=== PATIENT | female | born 1965 | race Caucasian/White ===

== ENCOUNTER 2016-04-17 11:58 | Emergency (ER) | payer OTHER ==
[2016-04-17 12:22] VITALS: BP 134/89
[2016-04-17] MEDS ORDERED: methylPREDNISolone 125 MG* 2 ML VIAL IM ONE (13:40)
[2016-04-17] MEDS ORDERED: Amoxicillin/Clavulanate TAB* 875 MG PO ONE (13:41)
[2016-04-17] MEDS ORDERED: cefTRIAXone VIAL(*) 1,000 MG VIAL IM ONE (13:41)
[2016-04-17] MEDS ORDERED: Lidocaine 1% MPF* 2 ML VIAL ONE (13:53)
--- NOTE | 2016-04-17 14:33 | UC ---
Guerrero Holloway Anna, scribed for Natalie De Oliveira MD on 04/17/16 at 1250 . General HPI - HPI Summary HPI Summary: Patient is a 50 y/o female coming to [facility] [place] presenting with a sore throat that began three days ago. Mild cough, runny nose, some tummy upset. No rash. Hurts to swallow, and feels congested "hard time breathing" when lies flat. Not sob now. Denies MOONEY, diarrhea. Her history is significant for degenerative disc disease, asthma, and COPD. - History of Current Complaint Chief Complaint: UCRespiratory Stated Complaint: BREATHING/THROAT ISSUES Hx Obtained From: Patient - Allergy/Home Medications Allergies/Adverse Reactions: Allergies Allergy/AdvReac Type Severity Reaction Status Date / Time Aspirin Allergy Severe anaphylaxis Verified 04/17/16 12:23 Sulfa Antibiotics Allergy Severe anaphylaxis Verified 10/15/15 19:01 Bees Allergy Anaphylatic Uncoded 04/17/16 12:23 Shock Environmental Allergies Allergy Congestion Uncoded 04/17/16 12:23 Home Medications: Home Medications Ibuprofen TAB* [Motrin TAB* 600 MG] 1 tab PO Q8HR PRN 04/17/16 [History Confirmed 04/17/16] Pantoprazole TAB (NF) [Protonix TAB (NF)] 1 tab PO DAILY 04/17/16 [History Confirmed 04/17/16] clonazePAM TAB(*) [Klonopin TAB(*)] 1 tab PO DAILY 04/17/16 [History Confirmed 04/17/16] oxyCODONE/Acetamin 10/325(NF) [Percocet 10/325 (NF)] 1 tab PO TID 04/17/16 [ History Confirmed 04/17/16] PMH/Surg Hx/FS Hx/Imm Hx Previously Healthy: No - see hpi Endocrine History Of: Denies: Diabetes, Thyroid Disease Cardiovascular History Of: Reports: Hypertension Denies: Cardiac Disorders, Pacemaker/ICD Respiratory History Of: Reports: COPD, Asthma GI/ History Of: Denies: Ulcer, Renal Disease Psychological History Of: Reports: Anxiety, Depression Cancer History Of: Denies: Breast Cancer - Surgical History Surgical History: Yes Surgery Procedure, Year, and Place: HYSTERECTOMY, TUBAL LIGATION, CARPAL TUNNEL - BILATERAL WRISTS - Family History Known Family History: Positive: Diabetes, Other - Hx Breast CA in aunt - Social History Alcohol Use: None Substance Use Type: None Substance Use Comment - Amount & Last Used: past cocaine use Smoking Status (MU): Current Every Day Smoker Type: Cigarettes Length of Time of Smoking/Using Tobacco: < 1/2 ppd Have You Smoked in the Last Year: Yes Household Exposure Type: Cigarettes - Immunization History Most Recent Influenza Vaccination: 2011 Most Recent Tetanus Shot: PT UNSURE Review of Systems Constitutional: Fever Skin: Negative Eyes: Negative ENT: Sore Throat, Nasal Discharge Respiratory: Cough Cardiovascular: Negative Gastrointestinal: Negative Genitourinary: Negative Motor: Negative Neurovascular: Negative Musculoskeletal: Negative Neurological: Negative Psychological: Negative All Other Systems Reviewed And Are Negative: Yes Physical Exam Triage Information Reviewed: Yes Appearance: Well-Nourished - sitting up. conversing in full sentances. Vital Signs: Initial Vital Signs Temp 95 F 04/17/16 12:11 Pulse 115 04/17/16 12:11 Resp 20 04/17/16 12:11 BP 134/89 04/17/16 12:11 Pulse Ox 99 04/17/16 12:11 Vital Signs Reviewed: Yes Eye Exam: Normal ENT: Positive: Nasal congestion, Tonsillar swelling, Tonsillar exudate, Other: - no stridor. Tongue not elevated. + adenopathy No meningismus. Neck exam: Normal Neck: Positive: Supple, Nontender Respiratory Exam: Normal Respiratory: Positive: Chest non-tender, Lungs clear, Normal breath sounds, No respiratory distress, No accessory muscle use Cardiovascular Exam: Normal Cardiovascular: Positive: RRR, No Murmur, Pulses Normal, Brisk Capillary Refill Abdominal Exam: Normal Abdomen Description: Positive: Nontender, No Organomegaly, Soft Bowel Sounds: Positive: Present Musculoskeletal Exam: Normal Musculoskeletal: Positive: Strength Intact Neurological Exam: Normal - nonfocal, grossly intact Psychological Exam: Normal - conversing easily and appropriately Skin Exam: Normal - No visible or reported rash Course/Dx - Course Course Of Treatment: No new problems in CCC. Considered below differential Dx s. Advised to brush her teeth and rinse her mouth our frequently. Advised to change her toothbrush tomorrow and again in four days. Ms. Bell reports that she is not able to go to the pharmacy until tomorrow am. As such, Rocephin IM here (she reports that she has had this shot in the past), po augmentin x 1, and solumedrol 125mgIM. Advised to go to the ED for worse or new problems. Questions answered to the best of my ability. - Differential Dx - Multi-Symptom Provider Diagnoses: Strep tonsillitis, acute Discharge - Discharge Plan Condition: Stable Disposition: HOME Prescriptions: Amoxicillin/Clavulanate TAB* [Augmentin TAB 875*] 875 mg PO BID #20 tab Fluconazole [Diflucan 150 MG (NF)] 150 mg PO DAILY #2 tab Patient Education Materials: Strep Throat (ED), Tonsillitis (ED) Referrals: Rudy Smith MD [Primary Care Provider] - Additional Instructions: Stomach medicine should not be taken within two hours of antibiotic. Change your toothbrush tomorrow, and again in four days. Please follow up with your primary care provider, Dr. Smith, per routine. Please seek medical attention for worsening problems in the meantime. The documentation as recorded by the Guerrero rosales Anna accurately reflects the service I personally performed and the decisions made by me, Natalie De Oliveira MD.
== END 2016-04-17 14:32 | disposition home or self-care (01) ==
LOC: UCEAST 11:58
DX: J02.0 Streptococcal pharyngitis (principal); I10 Essential (primary) hypertension; J44.9 Chronic obstructive pulmonary disease, unspecified; J45.909 Unspecified asthma, uncomplicated; F17.210 Nicotine dependence, cigarettes, uncomplicated; Z88.2 Allergy status to sulfonamides; F41.9 Anxiety disorder, unspecified; F32.9 Major depressive disorder, single episode, unspecified
CPT/HCPCS: 87651; 96372; 99212; A9270-GY; G0463; J0696; J2930

== ENCOUNTER 2016-09-07 12:34 | Emergency (ER) | payer OTHER ==
[2016-09-07 12:51] VITALS: BP 104/69
--- NOTE | 2016-09-07 20:14 | ED ---
Archana Holloway Edward, scribed for Polo Paz MD on 09/07/16 at 1302 . Skin Complaint - HPI Summary HPI Summary: 50 y/o female c/o red rashes all over her body that appeared 4 days ago. Rashes on face, all over bilateral upper and lower extremities and back. Spots are not painful but pruritic. None on stomach. The spots are worse in the morning. Denies swelling of lips and tongue. Associated sx: SOB earlier and sharp pain in her lower back rated @ 8/10 at triage. PMHx asthma. Patient states she moved into her new home last week and recently bought a new mattress as well. - History of Current Complaint Chief Complaint: EDRashSkinAbscess Time Seen by Provider: 09/07/16 12:53 Stated Complaint: HIVES/DIFFICULTY BREATHING Hx Obtained From: Patient Onset/Duration: Started Days Ago - 3 days ago Current Severity: Severe Pain Intensity: 8 Pain Scale Used: 0-10 Numeric Skin Location: Diffuse - Face, all extremities, back Character: Pruritus, Redness, Raised Associated Signs & Symptoms: Rash - Diffuse over body, pruritic but not painful - Allergy/Home Medications Allergies/Adverse Reactions: Allergies Allergy/AdvReac Type Severity Reaction Status Date / Time Aspirin Allergy Severe anaphylaxis Verified 04/17/16 12:23 Sulfa Antibiotics Allergy Severe anaphylaxis Verified 10/15/15 19:01 Bees Allergy Anaphylatic Uncoded 04/17/16 12:23 Shock Environmental Allergies Allergy Congestion Uncoded 04/17/16 12:23 PMH/Surg Hx/FS Hx/Imm Hx Previously Healthy: No Endocrine/Hematology History: Denies: Hx Diabetes, Hx Thyroid Disease Cardiovascular History: Reports: Hx Hypertension Denies: Hx Pacemaker/ICD Respiratory History: Reports: Hx Asthma, Hx Chronic Obstructive Pulmonary Disease (COPD) GI History: Reports: Hx Gastroesophageal Reflux Disease Denies: Hx Ulcer History: Denies: Hx Renal Disease Musculoskeletal History: Reports: Hx Back Problems - CHRONIC BACK PAIN, Other Musculoskeletal History - RIGHT CARPAL TUNNEL SX Sensory History: Denies: Hx Hearing Aid Psychiatric History: Reports: Hx Anxiety, Hx Depression, Hx Panic Disorder, Hx Post Traumatic Stress Disorder - Surgical History Surgery Procedure, Year, and Place: HYSTERECTOMY, TUBAL LIGATION, CARPAL TUNNEL - BILATERAL WRISTS Infectious Disease History: Yes Infectious Disease History: Denies: Hx Hepatitis, Hx Human Immunodeficiency Virus (HIV), History Other Infectious Disease, Traveled Outside the [place] in Last 30 Days - Family History Known Family History: Positive: Diabetes, Other - Hx Breast CA in aunt - Social History Occupation: Disabled Lives: Alone Alcohol Use: None Hx Substance Use: Yes Substance Use Type: Reports: Cocaine Substance Use Comment - Amount & Last Used: past cocaine use Hx Tobacco Use: Yes Smoking Status (MU): Current Every Day Smoker Type: Cigarettes Length of Time of Smoking/Using Tobacco: < 1/2 ppd Have You Smoked in the Last Year: Yes Review of Systems Constitutional: Negative Eyes: Negative ENT: Negative Cardiovascular: Negative Positive: Shortness Of Breath Gastrointestinal: Negative Genitourinary: Negative Positive: Myalgia - Low back barry Positive: Rash - Diffuse, pruritic not painful Neurological: Negative Psychological: Normal All Other Systems Reviewed And Are Negative: Yes Physical Exam - Summary Physical Exam Summary: VITAL SIGNS:~Reviewed. GENERAL:~ Patient is a well-developed and nourished female who is lying comfortable in the stretcher.~ Patient is not in any acute respiratory distress. HEAD AND FACE:~No signs of trauma.~ No ecchymosis, hematomas or skull depressions. No sinus tenderness. EYES:~PERRLA, EOMI x 2, No injected conjunctiva, no nystagmus. EARS:~Hearing grossly intact. Ear canals and tympanic membranes are within normal limits. MOUTH:~Oropharynx within normal limits. NECK:~Supple, trachea is midline, no adenopathy, no JVD, no carotid bruit, no c- spine tenderness, neck with full ROM. CHEST:~Symmetric, no tenderness at palpation LUNGS:~Clear to auscultation bilaterally. No wheezing or crackles. CVS:~Regular rate and rhythm, S1 and S2 present, no murmurs or gallops appreciated. ABDOMEN:~Soft, non-tender. No signs of distention. No rebound no guarding, and no masses palpated. Bowel sounds are normal. EXTREMITIES:~FROM in all major joints, no edema, no cyanosis or clubbing. NEURO:~Alert and oriented x 3. No acute neurological deficits. Speech is normal and follows commands. SKIN:~Dry and warm. Diffuse insect bites in upper extremities, lower extremities , back, face, and neck - positive erythema and signs of scratching. Triage Information Reviewed: Yes Vital Signs On Initial Exam: Initial Vitals Temp Pulse Resp BP Pulse Ox 97.9 F 84 20 104/69 95 09/07/16 12:46 09/07/16 12:46 09/07/16 12:46 09/07/16 12:46 09/07/16 12:46 Vital Signs Reviewed: Yes Diagnostics - Vital Signs Vital Signs Temp Pulse Resp BP Pulse Ox 09/07/16 12:46 97.9 F 84 20 104/69 95 - Laboratory Lab Statement: Any lab studies that have been ordered have been reviewed, and results considered in the medical decision making process. Course/Dx - Course Assessment/Plan: 50 y/o female c/o red rashes all over her body that appeared 4 days ago. Rashes on face, all over bilateral upper and lower extremities and back. Spots are not painful but pruritic. None on stomach. The spots are worse in the morning. Denies swelling of lips and tongue. Associated sx: SOB earlier and sharp pain in her lower back rated @ 8/10 at triage. PMHx asthma. Patient states she moved into her new home last week and recently bought a new mattress as well. Pt comes with a rash on her upper extermities, chest, back, neck, face and lower extremities. She developed a rash after sleeping on a new couch given to her last Saturday. The pt c/o of itching all over body. It seems the patient has scabies, therefore the patient was given Benadryl and Elimite as well as instructions for getting rid of bed bugs. The patient understand and agrees. The patient is hemodynamically stable and A&Ox3. - Diagnoses Provider Diagnoses: Scabies Discharge - Discharge Plan Condition: Stable Disposition: HOME Prescriptions: Permethrin [Elimite] 5 % TOPICAL ONCE #1 tube diPHENhydraMINE PO* [Benadryl PO 25 MG TAB*] 25 mg PO TID PRN #30 tab PRN Reason: Itching Patient Education Materials: Scabies (ED) Referrals: Rudy Smith MD [Primary Care Provider] - 3 Days (Please f/u in 2-3 days) The documentation as recorded by the Archana rosales Edward accurately reflects the service I personally performed and the decisions made by , Polo Paz MD.
== END 2016-09-07 14:15 | disposition home or self-care (01) ==
LOC: ED 12:34
DX: B86 Scabies (principal); J44.9 Chronic obstructive pulmonary disease, unspecified; I10 Essential (primary) hypertension; K21.9 Gastro-esophageal reflux disease without esophagitis; Z88.6 Allergy status to analgesic agent; Z88.2 Allergy status to sulfonamides; F41.9 Anxiety disorder, unspecified; F32.9 Major depressive disorder, single episode, unspecified
CPT/HCPCS: 99282

== ENCOUNTER 2016-09-08 23:41 | Emergency (ER) | payer OTHER ==
[2016-09-09] MEDS ORDERED: methylPREDNISolone 125 MG* 2 ML VIAL IV ONE (00:38)
[2016-09-09] MEDS ORDERED: NS 0.9% 1000 ML* 1,000 ML IV ONE (00:38)
[2016-09-09] MEDS ORDERED: diPHENhydraMINE IV* 50 MG/ML 1 ml VIAL (BENADRYL) IV ONE (00:38)
[2016-09-09 00:46] LABS: Hematocrit 44 % (35-47); Hemoglobin 14.8 g/dl (12.0-16.0); Mean Corpuscular HGB Conc 33 g/dl (31-36); Mean Corpuscular Hemoglobin 29 pg (27-31); Mean Corpuscular Volume 88 fL (80-97); Mean Platelet Volume 8 um3 (7.4-10.4); Red Blood Count 5.04 10^6/ul (4.0-5.4); Red Cell Distribution Width 14 % (10.5-15); White Blood Count 9.6 10^3/ul (3.5-10.8)
[2016-09-09 01:10] LABS: BUN/Creatinine Ratio 16.8 (8-20); Calcium 9.2 mg/dL (8.6-10.3); EGFR African American 80.7 (>60); EGFR Non-African American 62.8 (>60); Potassium 3.8 mmol/L (3.5-5.0); Total Bilirubin 0.3 mg/dL (0.2-1.0)
--- NOTE | 2016-09-09 01:23 | ED ---
Jin Holloway Benjamin, scribed for Cipriano Hammond MD on 09/09/16 at 0111 . Allergic Reaction/Systemic - HPI Summary HPI Summary: 50yo female was seen yesterday with blister rash and throat tightening. Pt was dx'ed with scabies. Pt returns with painful rash. Pt is allergic to aspirin, sulfa drugs, and bee venom. - History of Current Complaint Chief Complaint: EDAllergicReaction Time Seen by Provider: 09/09/16 00:34 Hx Obtained From: Patient Onset/Duration: Gradual Onset, Started days ago, Worse Since - yesterday Timing: Constant, Lasting Days Severity Initially: Mild Severity Currently: Moderate Location: Diffuse Character: Pain, Hives Aggravating Factor(s): Nothing Alleviating Factor(s): Nothing Associated Signs And Symptoms: Positive: Negative - Allergies/Home Medications Allergies/Adverse Reactions: Allergies Allergy/AdvReac Type Severity Reaction Status Date / Time Aspirin Allergy Severe anaphylaxis Verified 04/17/16 12:23 Sulfa Antibiotics Allergy Severe anaphylaxis Verified 10/15/15 19:01 Bees Allergy Anaphylatic Uncoded 04/17/16 12:23 Shock Environmental Allergies Allergy Congestion Uncoded 04/17/16 12:23 PMH/Surg Hx/FS Hx/Imm Hx Endocrine/Hematology History: Denies: Hx Diabetes, Hx Thyroid Disease Cardiovascular History: Reports: Hx Hypertension Denies: Hx Pacemaker/ICD Respiratory History: Reports: Hx Asthma, Hx Chronic Obstructive Pulmonary Disease (COPD) GI History: Reports: Hx Gastroesophageal Reflux Disease Denies: Hx Ulcer History: Denies: Hx Renal Disease Musculoskeletal History: Reports: Hx Back Problems - CHRONIC BACK PAIN, Other Musculoskeletal History - RIGHT CARPAL TUNNEL SX Sensory History: Denies: Hx Hearing Aid Psychiatric History: Reports: Hx Anxiety, Hx Depression, Hx Panic Disorder, Hx Post Traumatic Stress Disorder - Surgical History Surgery Procedure, Year, and Place: HYSTERECTOMY, TUBAL LIGATION, CARPAL TUNNEL - BILATERAL WRISTS Infectious Disease History: Denies: Hx Hepatitis, Hx Human Immunodeficiency Virus (HIV), History Other Infectious Disease, Traveled Outside the [place] in Last 30 Days - Family History Known Family History: Positive: Diabetes, Other - Hx Breast CA in aunt - Social History Occupation: Employed Full-time Lives: With Family Alcohol Use: None Hx Substance Use: Yes Substance Use Type: Reports: Cocaine Substance Use Comment - Amount & Last Used: past cocaine use Hx Tobacco Use: Yes Smoking Status (MU): Current Every Day Smoker Type: Cigarettes Length of Time of Smoking/Using Tobacco: < 1/2 ppd Have You Smoked in the Last Year: Yes Review of Systems Constitutional: Negative Eyes: Negative ENT: Negative Cardiovascular: Negative Respiratory: Negative Gastrointestinal: Negative Genitourinary: Negative Musculoskeletal: Negative Positive: Rash - painful rash Neurological: Negative Psychological: Normal All Other Systems Reviewed And Are Negative: Yes Physical Exam Triage Information Reviewed: Yes Vital Signs On Initial Exam: Initial Vitals Temp Pulse Resp BP Pulse Ox 98.2 F 87 14 152/92 96 09/09/16 00:51 09/09/16 00:51 09/09/16 00:51 09/09/16 00:51 09/09/16 00:51 Vital Signs Reviewed: Yes Appearance: Positive: Well-Appearing, Pain Distress - mild discomfort Skin: Positive: Warm, Other - patchy macular papular erythematous rash on extremities, forehead, some with mild blistering Head/Face: Positive: Normal Head/Face Inspection ENT: Positive: Pharynx normal Neck: Positive: Supple Respiratory/Lung Sounds: Positive: Breath Sounds Present Cardiovascular: Positive: RRR Abdomen Description: Positive: Nontender, Soft Bowel Sounds: Positive: Present Musculoskeletal: Positive: Strength/ROM Intact Diagnostics - Vital Signs Vital Signs Temp Pulse Resp BP Pulse Ox 09/09/16 00:51 98.2 F 87 14 152/92 96 - Laboratory Lab Results: Lab Results 09/09/16 09/09/16 Range/Units 00:35 00:35 WBC 9.6 (3.5-10.8) 10^3/ul RBC 5.04 (4.0-5.4) 10^6/ul Hgb 14.8 (12.0-16.0) g/dl Hct 44 (35-47) % MCV 88 (80-97) fL MCH 29 (27-31) pg MCHC 33 (31-36) g/dl RDW 14 (10.5-15) % Plt Count 320 (150-450) 10^3/ul MPV 8 (7.4-10.4) um3 Neut % (Auto) 48.9 (38-83) % Lymph % (Auto) 37.4 (25-47) % Hudson % (Auto) 6.9 (1-9) % Eos % (Auto) 5.7 (0-6) % Baso % (Auto) 1.1 (0-2) % Absolute Neuts (auto) 4.7 (1.5-7.7) 10^3/ul Absolute Lymphs (auto) 3.6 (1.0-4.8) 10^3/ul Absolute Monos (auto) 0.7 (0-0.8) 10^3/ul Absolute Eos (auto) 0.5 (0-0.6) 10^3/ul Absolute Basos (auto) 0.1 (0-0.2) 10^3/ul Absolute Nucleated RBC 0.01 10^3/ul Nucleated RBC % 0.1 Sodium 135 (133-145) mmol/L Potassium 3.8 (3.5-5.0) mmol/L Chloride 104 (101-111) mmol/L Carbon Dioxide 24 (22-32) mmol/L Anion Gap 7 (2-11) mmol/L BUN 16 (6-24) mg/dL Creatinine 0.95 (0.51-0.95) mg/dL Est GFR ( Amer) 80.7 (>60) Est GFR (Non-Af Amer) 62.8 (>60) BUN/Creatinine Ratio 16.8 (8-20) Glucose 102 H (70-100) mg/dL Calcium 9.2 (8.6-10.3) mg/dL Total Bilirubin 0.30 (0.2-1.0) mg/dL AST 11 L (13-39) U/L ALT 11 (7-52) U/L Alkaline Phosphatase 63 (34-104) U/L Total Protein 7.0 (6.4-8.9) g/dL Albumin 4.0 (3.2-5.2) g/dL Globulin 3.0 (2-4) g/dL Albumin/Globulin Ratio 1.3 (1-3) Result Diagrams: 09/09/16 00:35 09/09/16 00:35 Lab Statement: Any lab studies that have been ordered have been reviewed, and results considered in the medical decision making process. Re-Evaluation - Re-Evaluation First Eval Change: Improved - rash less pruritic, advised pt to stop permethrin, continue benadryl and predbisone, will add keflex for possible cellulitis. pt to f/u with pcp in 1-2 days or return to ed if sxs worsen Allergic Reaction Course/Dx - Diagnoses Provider Diagnoses: Dermatitis Discharge - Discharge Plan Condition: Improved Disposition: HOME Prescriptions: DOXYcycline CAP(*) [DOXYcycline 100MG CAP(*)] 100 mg PO BID #14 cap diPHENhydraMINE PO* [Benadryl PO 25 MG TAB*] 25 mg PO Q6H #20 tab predniSONE TAB* [Deltasone TAB*] 40 mg PO DAILY #8 tab Patient Education Materials: Dermatitis (ED) Referrals: Kenzie Mane [Medical Doctor] - Rudy Smith MD [Primary Care Provider] - The documentation as recorded by the Jin rosales Benjamin accurately reflects the service I personally performed and the decisions made by me, Cipriano Hammond MD.
[2016-09-09] MEDS ORDERED: Ketorolac INJ* 30 MG/ML 1 ML VIAL IV PUSH ONE (01:42)
[2016-09-09] MEDS ORDERED: Ketorolac INJ* 30 MG/ML 1 ML VIAL ONE (01:43)
[2016-09-09] MEDS ORDERED: DOXYcycline CAP(*) 100 MG PO ONE (02:30)
[2016-09-09 03:05] VITALS: BP 118/81
== END 2016-09-09 03:19 | disposition home or self-care (01) ==
LOC: ED 23:41
DX: L30.9 Dermatitis, unspecified (principal); I10 Essential (primary) hypertension; J44.9 Chronic obstructive pulmonary disease, unspecified; K21.9 Gastro-esophageal reflux disease without esophagitis; F41.9 Anxiety disorder, unspecified; F32.9 Major depressive disorder, single episode, unspecified; Z88.2 Allergy status to sulfonamides; Z88.6 Allergy status to analgesic agent; Z91.030 Bee allergy status; F17.210 Nicotine dependence, cigarettes, uncomplicated
CPT/HCPCS: 36415; 80053; 85025; 96361; 96374; 96375; 99284; A9270-GY; J1200; J1885; J2930

== ENCOUNTER 2017-01-12 12:00 | Emergency (ER) | payer OTHER ==
[2017-01-12 12:11] VITALS: BP 144/96
[2017-01-12] MEDS ORDERED: Albuterol/Ipratropium NEB.SOL* Albuterol 2.5 MG/Ipratropium 0.5 MG 3 ML INH ONE (14:28)
--- NOTE | 2017-01-12 14:35 | ED ---
Shortness of Breath - HPI Summary HPI Summary: 51 female presents to ED with complaints of chest congestion, pain and SOB that began 2 weeks ago and has been worsening. Patient states she was visiting her family 1 week ago for the holidays ([address] time) and states symptoms worsened after that. She does admits to allergies and asthma and think their pets may have exacerbated her symptoms. Admits to nasal congestion. Also admits to fever stating it was 102F yesterday. She took tylenol yesterday, has not had fever since. Has not taken any medication today. Denies productive cough. Admits to chest pain worsening with deep breaths and cough, radiating into right shoulder. Also of complaint is some increased lower back pain, that is chronic with swelling. No other complaints. Denies vomiting, nausea, abdominal pain, urinary symptoms, trauma and injury. Has been eating and drinking. Only took oxycodone yesterday for her chronic back pain. Does use cigarettes. Never had PE/DVT in the past. Has been told she had beginning stages of COPD. PMHx of asthma, chronic back pain, HTN, some signs of COPD, "mini heart attack" in the past. Denies any calf pain or swelling. - History of Current Complaint Chief Complaint: EDUpperRespComplaint Time Seen by Provider: 01/12/17 13:39 Hx Obtained From: Patient Onset/Duration: Sudden Onset, Lasting Weeks, Still Present, Worse Since Timing: Constant Current Severity: Moderate Aggrevating Factors: Allergens, Deep Breaths, Other - coughing Alleviating Factors: Nothing Associated Signs & Symptoms: Cough (Nonproductive), Chest Pain w/Cough, Fever, Nasal Congestion - Risk Factors Pulmonary Embolism: Recent Travel, Smoking Cardiac: Prior NV - possibly?, "mini" per pateint - Allergy/Home Medications Allergies/Adverse Reactions: Allergies Allergy/AdvReac Type Severity Reaction Status Date / Time Aspirin Allergy Severe anaphylaxis Verified 01/12/17 12:09 Sulfa Antibiotics Allergy Severe anaphylaxis Verified 01/12/17 12:09 Bees Allergy Anaphylatic Uncoded 01/12/17 12:09 Shock Environmental Allergies Allergy Congestion Uncoded 01/12/17 12:09 PMH/Surg Hx/FS Hx/Imm Hx Endocrine/Hematology History: Denies: Hx Diabetes, Hx Thyroid Disease Cardiovascular History: Reports: Hx Hypertension Denies: Hx Pacemaker/ICD Respiratory History: Reports: Hx Asthma, Hx Chronic Obstructive Pulmonary Disease (COPD) GI History: Reports: Hx Gastroesophageal Reflux Disease Denies: Hx Ulcer History: Denies: Hx Renal Disease Musculoskeletal History: Reports: Hx Back Problems - CHRONIC BACK PAIN, Other Musculoskeletal History - RIGHT CARPAL TUNNEL SX Sensory History: Denies: Hx Hearing Aid Psychiatric History: Reports: Hx Anxiety, Hx Depression, Hx Panic Disorder, Hx Post Traumatic Stress Disorder - Surgical History Surgery Procedure, Year, and Place: HYSTERECTOMY, TUBAL LIGATION, CARPAL TUNNEL - BILATERAL WRISTS - Immunization History Immunizations Up to Date: Yes Infectious Disease History: No Infectious Disease History: Denies: Hx Hepatitis, Hx Human Immunodeficiency Virus (HIV), History Other Infectious Disease, Traveled Outside the [place] in Last 30 Days - Family History Known Family History: Positive: Diabetes, Other - Hx Breast CA in aunt - Social History Alcohol Use: None Hx Substance Use: Yes Substance Use Type: Reports: Cocaine Substance Use Comment - Amount & Last Used: past cocaine use Hx Tobacco Use: Yes Smoking Status (MU): Current Every Day Smoker Type: Cigarettes Length of Time of Smoking/Using Tobacco: < 1/2 ppd Have You Smoked in the Last Year: Yes Review of Systems Constitutional: Negative Positive: Chest Pain Positive: Shortness Of Breath, Cough Gastrointestinal: Negative Genitourinary: Negative Positive: Myalgia - lower back Skin: Negative Neurological: Negative All Other Systems Reviewed And Are Negative: Yes Physical Exam Triage Information Reviewed: Yes Vital Signs On Initial Exam: Initial Vitals Temp Pulse Resp BP Pulse Ox 97.5 F 93 20 144/96 97 01/12/17 12:10 01/12/17 12:10 01/12/17 12:10 01/12/17 12:10 01/12/17 12:10 Vital Signs Reviewed: Yes Appearance: Positive: Well-Appearing, No Pain Distress, Well-Nourished Skin: Positive: Warm, Skin Color Reflects Adequate Perfusion, Dry. Negative: Cold, Numb, Cyanosis @, Pale, Erythema @ Head/Face: Positive: Normal Head/Face Inspection Eyes: Positive: EOMI, DIAMANTE, Conjunctiva Clear ENT: Positive: Normal ENT inspection, Hearing grossly normal, Pharynx normal, Pharyngeal erythema, Nasal congestion, TMs normal, Uvula midline. Negative: TM bulging, Tonsillar swelling, Tonsillar exudate Dental: Positive: Percussion Tenderness @ - maxillary b/l Neck: Positive: Supple, Nontender, No Lymphadenopathy Respiratory/Lung Sounds: Positive: Clear to Auscultation, Breath Sounds Present , Decreased Breath Sounds - diffuse. Negative: Rales, Rhonchi, Wheezes Cardiovascular: Positive: Normal, RRR, Pulses are Symmetrical in both Upper and Lower Extremities. Negative: Murmur, Rub Abdomen Description: Positive: Nontender, Soft Bowel Sounds: Positive: Present Musculoskeletal: Positive: Normal, Strength/ROM Intact, Other - no edema, erythema or signs of trauma or abnormality at lower back upon exam Neurological: Positive: Normal, Sensory/Motor Intact, Alert, Oriented to Person Place, Time, CN Intact II-III, Reflexes Intact, NV Bundle Intact Distally, Normal Gait Diagnostics - Vital Signs Vital Signs Temp Pulse Resp BP Pulse Ox 01/12/17 12:10 97.5 F 93 20 144/96 97 - Laboratory Result Diagrams: 01/12/17 15:08 01/12/17 15:08 Lab Statement: Any lab studies that have been ordered have been reviewed, and results considered in the medical decision making process. - CT chest CT Interpretation Completed By: Radiologist - EKG EKG Cardiac Rate: NL EKG Rhythm: Sinus Rhythm ST Segment: Normal Ectopy: None EKG Interpretation: NSR 85 bpm EKG Comparison: No Significant Change Re-Evaluation - Re-Evaluation First Eval Re-Evaluation Time: 16:00 Change: Improved - had significant improvement after duoneb, CTA without wheezing, rales, rhonci Course/Dx - Course Course Of Treatment: duoneb administered. had relief. labs, urinalysis, chest xray, troponin and d dimer obtained and unremarkable and negative. appears to be suffering from a viral URI/asthma exacerbation. continue use of albuterol inhaler. flonase and symptomatic over the counter measures that were suggest. increase fluid intake and and rest. Aware of worsening signs and symptoms to watch out for. Follow up with PCP. No concern for other etiology such as PE, cardiac etiology, or pneumnia. Normal vitals. Ibuprofen for discomfort related to excessvie coughing/costochondritis. Encourage to discontinue cigarette use. Patient understands and agrees. All questions answered. - Diagnoses Differential Diagnosis/HQI/PQRI: Positive: Asthma, Bronchitis, Chest Wall Pain, Pneumonia, Pulmonary Embolism, Other - URI Provider Diagnoses: Asthma, Upper respiratory infection Discharge - Discharge Plan Condition: Stable Disposition: HOME Prescriptions: Fluticasone NASAL SPRAY 50MCG* [Flonase NASAL SPRAY 50MCG*] 2 spray BOTH NARES DAILY #1 btl Patient Education Materials: Asthma (ED), Upper Respiratory Infection (ED) Referrals: Rudy Smith MD [Primary Care Provider] - Additional Instructions: Continue use of albuterol inhaler. Recommend taking Mucinex D to help with congestion, while symptoms persist. Also recommend taking Claritin for allergy symptoms, exacerbating asthma for the next 7-10 days. Prescribed flonase for nasal congestion. Ibuprofen for discomfort and inflammation. Rest and increase fluid intake. Zicam to boost immune system. Any new or worsening symptoms please seek medical attention. Follow up with PCP.
--- NOTE | 2017-01-12 15:12 | RAD ---
INDICATION: Chest pain and shortness of breath. COMPARISON: Comparison is made with a prior chest x-ray study from January 07, 2013. TECHNIQUE: Dual-energy PA and lateral views of the chest were obtained. FINDINGS: The heart is within normal limits in size. Mediastinal and hilar contours appear within normal limits. The lungs are clear. No pleural effusion or pneumothorax is seen. IMPRESSION: NO EVIDENCE FOR ACTIVE CARDIOPULMONARY DISEASE.
[2017-01-12 15:22] LABS: Hematocrit 41 % (35-47); Hemoglobin 13.7 g/dl (12.0-16.0); Mean Corpuscular HGB Conc 33 g/dl (31-36); Mean Corpuscular Hemoglobin 30 pg (27-31); Mean Corpuscular Volume 88 fL (80-97); Mean Platelet Volume 8 um3 (7.4-10.4); Red Blood Count 4.66 10^6/ul (4.0-5.4); Red Cell Distribution Width 15 % (10.5-15); White Blood Count 7.2 10^3/ul (3.5-10.8)
[2017-01-12 15:56] LABS: Albumin 4.2 g/dL (3.2-5.2); BUN/Creatinine Ratio 14.7 (8-20); C Reactive Protein 3.83 mg/L (< 5.00); Calcium 9.2 mg/dL (8.6-10.3); EGFR African American 105.6 (>60); EGFR Non-African American 82.1 (>60); Globulin 2.8 g/dL (2-4); Potassium 3.8 mmol/L (3.5-5.0); Total Bilirubin 0.4 mg/dL (0.2-1.0)
== END 2017-01-12 16:42 | disposition home or self-care (01) ==
LOC: ED 12:00
DX: J06.9 Acute upper respiratory infection, unspecified (principal); J45.909 Unspecified asthma, uncomplicated; I10 Essential (primary) hypertension; J44.9 Chronic obstructive pulmonary disease, unspecified; K21.9 Gastro-esophageal reflux disease without esophagitis; M54.9 Dorsalgia, unspecified; F41.9 Anxiety disorder, unspecified; F32.9 Major depressive disorder, single episode, unspecified; Z88.2 Allergy status to sulfonamides
CPT/HCPCS: 36415; 71020; 80053; 83605; 84484; 85025; 85379; 86140; 87502; 93005; 94640; 99282; A9270-GY